=== PATIENT | male | born 1950 | race Caucasian/White ===

== ENCOUNTER 2016-12-10 19:21 | Emergency (ER) | payer OTHER ==
[2016-12-10 19:43] LABS: BASOPHILS % 0.4 (0.0-1.5); EOSINOPHILS % 1.6 % (0.0-6.8); MEAN CORPUSCULAR HEMOGLOBIN 29.6 pg (28.0-34.0); MEAN CORPUSCULAR VOLUME 87.5 fl (80.0-100.0); MONOCYTES % 6.5 % (0.0-11.0); NEUTROPHILS # 7.6 # k/uL (1.4-7.7)
--- NOTE | 2016-12-10 19:50 | ED Physician Documentation ---
General Adult - HISTORIAN Historian: patient - HPI Stated Complaint: possible bleeding from colostomy Chief Complaint: General Adult Onset: hours Timing: still present Severity: mild Further Comments: yes (Pt is a 66 yo prisoner who had abd surg. at the [facility] . Pt claimed that he had bleeding from his colostomy and was brought to ER by guards. No lightheadedness, chest pain, or sob.) - ROS CONST: no problems EYES/ENT: none CVS/RESP: none GI/: other (pt states blood in colostomy) MS/SKIN/LYMPH: none - PAST HX Past History: hypertension, other (GERD, abd surgery, colostomy) Surgeries/Procedures: other (abd surg/colostomy) Allergies/Adverse Reactions: Allergies Allergy/AdvReac Type Severity Reaction Status Date / Time No Known Allergies Allergy Verified 12/10/16 19:38 Home Medications: Ambulatory Orders Medication Instructions Recorded Finasteride [Proscar] 5 mg PO HS 12/10/16 Hydrochlorothiazide [Hydrodiuril] 25 mg PO DAILY 12/10/16 Ibuprofen [Advil] 800 mg PO TID 12/10/16 Omeprazole [Prilosec] 20 mg PO QDAY 12/10/16 Tamsulosin HCl [Flomax] 0.4 mg PO [id number] 12/10/16 - SOCIAL HX Smoking History: non-smoker - FAMILY HX Family History: No - VITAL SIGNS Vital Signs: Vital Signs Temp Pulse Resp BP Pulse Ox 92 H 16 152/94 99 12/10/16 19:25 12/10/16 19:25 12/10/16 19:25 12/10/16 19:25 - REVIEWED ASSESSMENTS Nursing Assessment Reviewed: Yes Vitals Reviewed: Yes Progress - Progress Progress: Pt had dried blood in R nares and blood under fingernail. No blood seen in colostomy bag or at colostomy site. ? if blood came from nares. K=3.1 KCl 20 mEq po given in ER. Pt has rx for potassium, which is about to start. [facility]c [facility]. ED Results Lab/Radiology - Lab Results Lab Results: Lab Results 12/10/16 19:40 WBC Pending RBC 4.67 M/ul M/ul (3.90-5.20) Hgb 13.8 g/dL g/dL (12.0-18.0) Hct 40.9 % % (37.0-53.0) MCV 87.5 fl fl (80.0-100.0) MCH 29.6 pg pg (28.0-34.0) MCHC 33.8 g/dL g/dL (30.0-36.0) RDW 13.1 % % (11.3-14.3) Plt Count 188 K/mm3 K/mm3 (130-400) Neut % (Auto) 79.7 % H % (39.0-79.0) Lymph % (Auto) 10.7 % L % (16.0-50.0) [place] % (Auto) 6.5 % % (0.0-11.0) Eos % (Auto) 1.6 % % (0.0-6.8) Baso % (Auto) 0.4 (0.0-1.5) Neut # 7.6 # k/uL # k/uL (1.4-7.7) Lymph # 1.0 # k/uL # k/uL (0.6-4.0) [place] # 0.6 # k/uL # k/uL (0.0-0.9) Eos # 0.2 # k/uL # k/uL (0.0-0.6) Baso # 0.0 # k/uL # k/uL (0.0-0.5) Reactive Lymphs % 1.1 % % (0.0-5.0) Reactive Lymphs # 0.1 # k/uL # k/uL (0.0-0.8) - Orders Orders: ED Orders Category Date Time Status CBC/PLATELET/DIFF Routine Lab 12/10/16 Ordered CMP [CMP] Routine Lab 12/10/16 Ordered General Adult Physical Exam - PHYSICAL EXAM GENERAL APPEARANCE: mild distress EENT: pharynx normal NECK: normal inspection, supple RESPIRATORY: no resp distress, chest non-tender, breath sounds normal CVS: reg rate & rhythm, heart sounds normal ABDOMEN: soft, normal bowel sounds, other (colostomy appears normal) BACK: normal inspection SKIN: warm/dry, normal color EXTREMITIES: non-tender, normal range of motion, no evidence of injury NEURO: oriented X3, motor nml, sensation nml Discharge Clincal Impression: Hypokalemia, concerns about colostomy Referrals: Primary Doctor,No [Primary Care Provider] - 2 Days Home Medications: Ambulatory Orders Finasteride [Proscar] 5 mg PO HS 12/10/16 Hydrochlorothiazide [Hydrodiuril] 25 mg PO DAILY 12/10/16 Ibuprofen [Advil] 800 mg PO TID 12/10/16 Omeprazole [Prilosec] 20 mg PO QDAY 12/10/16 Tamsulosin HCl [Flomax] 0.4 mg PO [id number] 12/10/16 Condition: Stable Disposition: 01 HOME, SELF-CARE Decision to Admit: NO Decision Time: 20:32
[2016-12-10 20:04] LABS: eGFR (African) > 60; eGFR (Non-African) > 60
[2016-12-10] MEDS ORDERED: POTASSIUM CHLORIDE 20 MEQ TABLET.ER PO ONE (20:11)
[2016-12-10] MEDS ORDERED: POTASSIUM CHLORIDE 20 MEQ TABLET.ER ONE (20:11)
[2016-12-10 20:35] VITALS: BP 139/82
== END 2016-12-10 20:25 | disposition home or self-care (01) ==
LOC: ED 19:21 → EDBD 19:21 → MERGE 19:21 → ED 20:25
DX: E87.6 Hypokalemia (principal)
CPT/HCPCS: 80053; 85025; A9270; 99283